=== PATIENT | female | born 1980 | race Caucasian/White ===

== ENCOUNTER 2019-03-25 11:35 | Emergency (ER) | payer BC ==
[2019-03-25] MEDS ORDERED: NORMAL SALINE 1000 ML 1,000 ML IV ONE (12:03)
--- NOTE | 2019-03-25 12:04 | ER Document Report ---
ED Medical Screen (RME) - General Chief Complaint: Flank Pain Stated Complaint: FLANK PAIN Time Seen by Provider: 03/25/19 11:58 Primary Care Provider: WALLACE SIERRA PA [Primary Care Provider] - Follow up as needed Mode of Arrival: Ambulatory Information source: Patient Notes: Patient is a 38-year-old female with recent gastric bypass and cholecystectomy presenting to the emergency department with complaints of dark urine and right flank pain. Patient reports she has had elevated liver enzymes lately. She is concerned that she has dehydrated as she has not been able to drink much fluid due to the recent gastric sleeve. Exam: Tenderness to palpation to the right flank and right upper quadrant. I have greeted and performed a rapid initial assessment of this patient. A comprehensive ED assessment and evaluation of the patient, analysis of test results and completion of the medical decision making process will be conducted by additional ED providers. I have specifically instructed the patient or family members with the patient to immediately return to any nursing staff should anything change in the patient's condition or with their chief complaint. This medical record was dictated with voice recognizing software. There may be grammatical, syntax errors that are unintended. TRAVEL OUTSIDE OF THE [place] IN LAST 30 DAYS: No - Related Data Allergies/Adverse Reactions: meperidine HCl [From Demerol] Allergy (Unknown, Verified 03/25/19 11:35) Past Medical History - Social History Frequency of alcohol use: None Drug Abuse: None Renal/ Medical History: Denies: Hx Peritoneal Dialysis GI Medical History: Reports: Hx Gastroesophageal Reflux Disease, Hx Hiatal Hernia Psychiatric Medical History: Reports: Hx Attention Deficit Hyperactivity Disorder, Hx Depression Past Surgical History: Reports: Hx Abdominal Surgery - gastric sleeve/hiatal hernia repair, Hx Section - X2, Hx Cholecystectomy, Hx Genitourinary Surgery - URETER STENT REMOVED - Immunizations Hx Diphtheria, Pertussis, Tetanus Vaccination: Yes Physical Exam - Vital signs Vitals: Temp Pulse Resp BP Pulse Ox 98.5 F 84 14 120/91 H 97 03/25/19 11:38 03/25/19 11:38 03/25/19 11:38 03/25/19 11:38 03/25/19 11:38 Course - Vital Signs Vital signs: Temp Pulse Resp BP Pulse Ox 98.5 F 84 14 120/91 H 97 03/25/19 11:38 03/25/19 11:38 03/25/19 11:38 03/25/19 11:38 03/25/19 11:38 Doctor's Discharge - Discharge Referrals: WALLACE SIERRA PA [Primary Care Provider] - Follow up as needed
[2019-03-25 12:34] LABS: ABSOLUTE EOSINOPHILS # (AUTO) 0.1 10^3/uL (0.0-0.6); ABSOLUTE LYMPHOCYTES (AUTO) 1.3 10^3/uL (0.5-4.7); ABSOLUTE MONOCYTES (AUTO) 0.4 10^3/uL (0.1-1.4); ABSOLUTE NEUT (AUTO) 2.9 10^3/uL (1.7-8.2); BASOPHILS % (AUTO) 0.7 % (0-2); EOSINOPHILS % (AUTO) 1.3 % (0-6); HEMATOCRIT 44.8 % (36.0-47.0); HEMOGLOBIN 15.5 g/dL (12.0-15.5); LYMPHOCYTES % (AUTO) 28.2 % (13-45); MEAN CORPUSCULAR HEMOGLOBIN 29.4 pg (27.0-33.4); MEAN CORPUSCULAR HGB CONC 34.6 g/dL (32.0-36.0); MEAN CORPUSCULAR VOLUME 85 fl (80-97); MONOCYTES % (AUTO) 7.7 % (3-13); PLATELET COUNT 209 10^3/uL (150-450); RED BLOOD COUNT 5.26 10^6/uL (3.72-5.28); RED CELL DISTRIBUTION WIDTH 14.3 % (11.5-14.0); SEGMENTED NEUTROPHILS % (AUTO) 62.1 % (42-78); TOTAL CELLS COUNTED % (AUTO) 100 %; WHITE BLOOD COUNT 4.6 10^3/uL (4.0-10.5)
[2019-03-25 12:48] LABS: ALKALINE PHOSPHATASE 53 U/L (38-126); ANION GAP 9 (5-19); ASPARTATE AMINO TRANSFERASE 24 U/L (14-36); BILIRUBIN,DIRECT 0.3 mg/dL (0.0-0.4); BILIRUBIN,TOTAL 0.9 mg/dL (0.2-1.3); BLOOD UREA NITROGEN 11 mg/dL (7-20); CALCIUM 9.4 mg/dL (8.4-10.2); CARBON DIOXIDE 24 mmol/L (22-30); CHLORIDE 108 mmol/L (98-107); GLUCOSE 90 mg/dL (75-110); TOTAL PROTEIN 6.7 g/dL (6.3-8.2)
[2019-03-25 13:38] LABS: APPEARANCE,URINE SLIGHTLY-CLOUDY; BILIRUBIN,URINE SMALL (NEGATIVE); COLOR,URINE AMBER; GLUCOSE, URINE NEGATIVE (NEGATIVE); KETONES,URINE 20 mg/dL (NEGATIVE); LEUKOCYTE ESTERASE,URINE NEGATIVE (NEGATIVE); NITRITE,URINE NEGATIVE (NEGATIVE); PROTEIN,URINE 30 mg/dL (NEGATIVE); URINE SPECIFIC GRAVITY 1.027
--- NOTE | 2019-03-25 14:31 | ER Document Report ---
HPI - HPI Patient complains to provider of: right flank pain, dark urine Time Seen by Provider: 03/25/19 11:58 Severity: Mild Pain Level: 2 Context: 38-year-old female with the listed pmh, to include a recent gastric bypass (02/01/19 done in [place]) and remote cholecystectomy presenting to the emergency department with complaints of dark urine and right flank pain x a few days. Patient reports she has had elevated liver enzymes since her surgery and her pcp has been watching them and they have been normalizing, pcp felt as if it was normal after her surgeries. She is concerned that she has dehydrated as she has not been able to drink much fluid due to the recent gastric sleeve. No abdominal surgeries other than the recent gastric bypass and remote cholecystectomy. No history of ovarian cysts, fibroids, or endometriosis. hx of renal stones, thinks it felt different. Normal bowel movements. No other UTI symptoms. No URI symptoms. No recent antibiotics or steroids. No history of diabetes or asthma. No vaginal discharge/complaints/lesions or concerns for STDs and does not want a pelvic exam. No ripping or tearing sensation. Hasn't taken anything for her symptoms. No excessive NSAID use, Tylenol use, or EtOH. No prior history of pancreatitis, ulcers, GI bleed, IBS, Crohn's, or UC. no change in color or caliber or stool. no blood thinners. no fall or trauma. hasn't sought care until now. pain not worse with deep breathing. pain worse with movement and better with rest. unsure if she just pulled something. otc meds controlling pain. she didn't want anything here for pain. no other associated sx. - ROS Systems Reviewed and Negative: Yes All other systems reviewed and negative - to include 10 systems, unless mentioned in the hpi - REPRODUCTIVE Reproductive: DENIES: : - DERM Skin Color: Normal, [place] Past Medical History - General Information source: Patient - Social History Smoking Status: Former Smoker Frequency of alcohol use: None Drug Abuse: None Family History: Hypertension, Malignancy - Lung cancer in a smoking relative., Other - Polycystic kidney disease in her grandmother but not in her mother. Patient has suicidal ideation: No Patient has homicidal ideation: No Endocrine Medical History: Reports: None Renal/ Medical History: Denies: Hx Peritoneal Dialysis GI Medical History: Reports: Hx Gastroesophageal Reflux Disease, Hx Hiatal Hernia, Other - liver hemangioma Psychiatric Medical History: Reports: Hx Attention Deficit Hyperactivity Disorder, Hx Depression Past Surgical History: Reports: Hx Abdominal Surgery - gastric sleeve/hiatal hernia repair, Hx Section - X2, Hx Cholecystectomy, Hx Genitourinary Surgery - URETER STENT REMOVED - Immunizations Immunizations up to date: Yes Hx Diphtheria, Pertussis, Tetanus Vaccination: Yes Vertical Provider Document - CONSTITUTIONAL Notes: >>>> PHYSICAL_EXAM: GENERAL_APPEARANCE: well_nourished, alert, cooperative, no_acute_distress, no_obvious_discomfort. Pleasant, young female, smiling, speaking in full sentences, in no sign of pain or resp distress, easily sitting up VITALS: reviewed, see vital signs table. HEAD: normocephalic, atraumatic. no dolan signs. no raccoon eyes. EYES: PERRL, EOMI, (-)scleral icterus. NOSE: no_nasal_discharge. MOUTH: (-)decreased moisture. THROAT: no_tonsilar_inflammation/hypertrophy/exudate NECK: supple, no_neck_tenderness, full rom. full strength. no meningeal signs. BACK: no midline_back_tenderness. no step offs or deformities. mild ttp over the right upper paralumbar musculature that reproduces pts pain exactly. spasm noted. no overlying skin changes. CHEST_WALL: no_chest_tenderness. LUNGS: no_wheezing, (-)accessory muscle use, good air exchange bilateral. HEART: normal_rate, normal_rhythm, ABDOMEN: normal_BS, soft, abdomen-diffuse, non-tender, (-)guarding, (- )rebound, no distension or peritoneal signs. neg murphys. neg mcburneys. no cva tenderness. neg heel sitrke. neg obturator. neg psoas. neg rovsign. well healed scars from pts prior abd surgeries. no hernias or signs of wound infection, complication, or dehiscence. incisions c/d/i. PELVIC: deferred by pt RECTAL: deferred; however, no sign of loss of bowel or bladder. no soiling of clothing. EXTREMITIES: strength 5/5 in all_extremities, good pulses in all_extremities, no_edema, no_swelling\tenderness. full rom. normal gait. good hand stock roller. brisk cap refill. SKIN: warm, dry, good_color, no_rash. no grossly visible overlying skin ch anges to suggest trauma NEURO: motor_intact, sensory_intact. cranial nerves 2-12 intact, cerebellar fxn intact MENTAL_STATUS: normal_affect, speech_clear, oriented_X_3, responds_appropriately to questions. - INFECTION CONTROL TRAVEL OUTSIDE OF THE [place] IN LAST 30 DAYS: No Course - Re-evaluation Re-evalutation: pt here for right flank pain x a few days and dark urine. labs unremarkable other than a ua that appears contaminated. advised will call with any abnormal results that require change in plan of care. will hold of on abx and await ucx results for initiation of abx. no other uti sx. hx of renal stones; however, pt refused imaging and just wanted fluids and dc. states she will return or f/u with pcp for imaging should her sx persist or worsen. no fevers, vomiting, or other changes in bowel or bladder. pain reproducible over her right upper paralumbar musculature and could be musculoskeletal. no crepitation, rash, or other overlying skin changes. no uri sx. advised sx care. ice/heat to the area. otc meds for pain. push fluids. advised to f/u with pcp in 1-2 days. return for any worsening symptoms. vss. well appearing. satting well on ra. neurononfocal. pt understands and agrees to plan. On reexam, pt improved with tx listed. remained stable. nontoxic. well appea ring. pain controlled. tolerating po. requesting to go home. serial abd exams remain benign. neurononfocal. Documentation achieved through voice recording which my lead to some occasional accidental typographical errors. Extensive efforts have been made to proof read documentation to make sure these are the least as possible. Category Date Time Status Saline Lock (ED) NOW Care 03/25/19 12:03 Active CBC WITH DIFF [HEME] Stat Lab 03/25/19 12:08 Completed COMPREHENSIVE METABOLIC PANEL [CHEM] Stat Lab 03/25/19 12:08 Completed HCG QUALITATIVE, URINE [URIN] Stat Lab 03/25/19 13:16 Completed LIPASE [CHEM] Stat Lab 03/25/19 12:08 Completed URINALYSIS [URIN] Stat Lab 03/25/19 13:16 Completed URINE CULTURE [MC] Stat Lab 03/25/19 13:16 Completed Normal Saline 1000 ml [NaCl 0.9% 1000 ml IV Soln] 1,000 Med 03/25/19 12:03 Discontinued ml IV BOLUS - Vital Signs Vital signs: Temp Pulse Resp BP Pulse Ox 98.5 F 84 14 120/91 H 97 03/25/19 11:38 03/25/19 11:38 03/25/19 11:38 03/25/19 11:38 03/25/19 11:38 Temp Pulse Resp BP Pulse Ox 03/25/19 16:11 97.8 F 80 16 116/86 H 100 03/25/19 11:38 98.5 F 84 14 120/91 H 97 - Laboratory Result Diagrams: 03/25/19 12:08 03/25/19 12:08 Laboratory results interpreted by me: 03/25/19 03/25/19 03/25/19 12:08 12:08 13:16 RDW 14.3 H Chloride 108 H Urine Protein 30 H Urine Ketones 20 H Urine Bilirubin SMALL H Urine Urobilinogen 4.0 H Labs- Entire Visit 03/25/19 03/25/19 03/25/19 12:08 12:08 13:16 WBC 4.6 RBC 5.26 Hgb 15.5 Hct 44.8 MCV 85 MCH 29.4 MCHC 34.6 RDW 14.3 H Plt Count 209 Seg Neutrophils % 62.1 Lymphocytes % 28.2 Monocytes % 7.7 Eosinophils % 1.3 Basophils % 0.7 Absolute Neutrophils 2.9 Absolute Lymphocytes 1.3 Absolute Monocytes 0.4 Absolute Eosinophils 0.1 Absolute Basophils 0.0 Sodium 141.1 Potassium 4.0 Chloride 108 H Carbon Dioxide 24 Anion Gap 9 BUN 11 Creatinine 0.70 Est GFR ( Amer) > 60 Est GFR (Non-Af Amer) > 60 Glucose 90 Calcium 9.4 Total Bilirubin 0.9 Direct Bilirubin 0.3 Neonat Total Bilirubin Not Reportable Neonat Direct Bilirubin Not Reportable Neonat Indirect Bili Not Reportable AST 24 ALT 19 Alkaline Phosphatase 53 Total Protein 6.7 Albumin 4.0 Lipase 215.0 Urine Color [place] Urine Appearance SLIGHTLY-CLOUDY Urine pH 5.0 Ur Specific [place] 1.027 Urine Protein 30 H Urine Glucose (UA) NEGATIVE Urine Ketones 20 H Urine Blood NEGATIVE Urine Nitrite NEGATIVE Urine Bilirubin SMALL H Urine Urobilinogen 4.0 H Ur Leukocyte Esterase NEGATIVE Urine WBC (Auto) 1 Urine RBC (Auto) 2 Squamous Epi Cells Auto 7 Urine Mucus (Auto) MANY Urine Ascorbic Acid NEGATIVE Urine HCG, Qual NEGATIVE Discharge - Discharge Clinical Impression: Flank pain Condition: Good Disposition: HOME, SELF-CARE Instructions: Flank Pain ([facility]) Additional Instructions: Follow-up with PCP in 1 to 2 days. Return for any worsening symptoms. drink plenty of fluids. bland diet. ice/heat to the area Referrals: WALLACE SIERRA PA [NO LOCAL MD] - Follow up in 3-5 days
[2019-03-25 16:13] VITALS: BP 116/86
== END 2019-03-25 16:14 | disposition home or self-care (01) ==
LOC: ER 11:35
DX: R10.9 Unspecified abdominal pain (principal); M79.18 Myalgia, other site; R25.2 Cramp and spasm; R39.89 Other symptoms and signs involving the genitourinary system; Z98.84 Bariatric surgery status; Z90.49 Acquired absence of other specified parts of digestive tract; Z87.442 Personal history of urinary calculi; Z87.891 Personal history of nicotine dependence; Z87.19 Personal history of other diseases of the digestive system
CPT/HCPCS: 99284; 96360; 36415; 87086; 83690; 85025; 81025; 87088; 80053; 81001; 87186; J7030

== ENCOUNTER 2020-07-12 17:05 | Emergency (ER) | payer BC ==
--- NOTE | 2020-07-12 17:30 | ER Document Report ---
ED Medical Screen (RME) - General Chief Complaint: Palpitations Stated Complaint: PALPITATIONS Time Seen by Provider: 07/12/20 17:26 Primary Care Provider: CANDELARIA ROBLEDO MD [Primary Care Provider] - Follow up as needed Mode of Arrival: Ambulatory Information source: Patient Notes: 39-year-old female presented to ED for chest palpitations. She states she was just tested positive for Covid about 1314 days ago and her palpitations returned when she tested positive. She states she has had palpitations in the past but that is been a while. She states she is not having shortness of breath she does have a cough she has been sick but she came in today mostly for the palpitation and the chest tightness. We will get chest pain protocol as well as a repeat Covid test. Charge nurse has been informed of patient's history. I have greeted and performed a rapid initial assessment of this patient. A comprehensive ED assessment and evaluation of the patient, analysis of test results and completion of medical decision making process will be conducted by an additional ED providers. TRAVEL OUTSIDE OF THE [place] IN LAST 30 DAYS: No - Related Data Allergies/Adverse Reactions: meperidine HCl [From Demerol] Allergy (Unknown, Verified 03/25/19 11:35) Past Medical History Renal/ Medical History: Denies: Hx Peritoneal Dialysis GI Medical History: Reports: Hx Gastroesophageal Reflux Disease, Hx Hiatal Hernia Psychiatric Medical History: Reports: Hx Attention Deficit Hyperactivity Disorder, Hx Depression Past Surgical History: Reports: Hx Abdominal Surgery - gastric sleeve/hiatal hernia repair, Hx Section - X2, Hx Cholecystectomy, Hx Genitourinary Surgery - URETER STENT REMOVED - Immunizations Immunizations up to date: Yes Hx Diphtheria, Pertussis, Tetanus Vaccination: Yes Physical Exam - Vital signs Vitals: Temp Pulse Resp BP Pulse Ox 98.7 F 142 H 20 126/79 H 100 07/12/20 17:24 07/12/20 17:24 07/12/20 17:24 07/12/20 17:24 07/12/20 17:24 Course - Vital Signs Vital signs: Temp Pulse Resp BP Pulse Ox 98.7 F 142 H 20 126/79 H 100 07/12/20 17:24 07/12/20 17:24 07/12/20 17:24 07/12/20 17:24 07/12/20 17:24 Doctor's Discharge - Discharge Referrals: CANDELARIA ROBLEDO MD [Primary Care Provider] - Follow up as needed
--- NOTE | 2020-07-12 18:08 | RADIOLOGY REPORT (SQ) ---
EXAM DESCRIPTION: CHEST SINGLE VIEW IMAGES COMPLETED DATE/TIME: 07/12/2020 5:57 pm REASON FOR STUDY: Palpitation recent Covid positive COMPARISON: None. EXAM PARAMETERS: NUMBER OF VIEWS: One view. TECHNIQUE: Single frontal radiographic view of the chest acquired. RADIATION DOSE: NA LIMITATIONS: None. FINDINGS: LUNGS AND PLEURA: No opacities, masses or pneumothorax. No pleural effusion. MEDIASTINUM AND HILAR STRUCTURES: No masses. Contour normal. HEART AND VASCULAR STRUCTURES: Heart normal in size. Normal vasculature. BONES: No acute findings. HARDWARE: None in the chest. OTHER: No other significant finding. IMPRESSION: NO ACUTE RADIOGRAPHIC FINDING IN THE CHEST. TECHNICAL DOCUMENTATION: JOB ID: [id number] 2010 [employer]- All Rights Reserved Reading location - IP/workstation name: [email or web address]
[2020-07-12 18:40] LABS: ABSOLUTE LYMPHOCYTES (AUTO) 0.7 10^3/uL (0.5-4.7); ABSOLUTE MONOCYTES (AUTO) 0.2 10^3/uL (0.1-1.4); ABSOLUTE NEUT (AUTO) 8.4 10^3/uL (1.7-8.2); BASOPHILS % (AUTO) 0.5 % (0-2); EOSINOPHILS % (AUTO) 0.1 % (0-6); HEMATOCRIT 37.3 % (36.0-47.0); HEMOGLOBIN 13.3 g/dL (12.0-15.5); LYMPHOCYTES % (AUTO) 7.3 % (13-45); MEAN CORPUSCULAR HEMOGLOBIN 29.8 pg (27.0-33.4); MEAN CORPUSCULAR HGB CONC 35.7 g/dL (32.0-36.0); MEAN CORPUSCULAR VOLUME 83 fl (80-97); MONOCYTES % (AUTO) 1.9 % (3-13); PLATELET COUNT 210 10^3/uL (150-450); RED BLOOD COUNT 4.48 10^6/uL (3.72-5.28); RED CELL DISTRIBUTION WIDTH 12.8 % (11.5-14.0); SEGMENTED NEUTROPHILS % (AUTO) 90.2 % (42-78); TOTAL CELLS COUNTED % (AUTO) 100 %; WHITE BLOOD COUNT 9.3 10^3/uL (4.0-10.5)
[2020-07-12 19:01] LABS: ALBUMIN 3.9 g/dL (3.5-5.0); ALKALINE PHOSPHATASE 56 U/L (38-126); ANION GAP 7 (5-19); ASPARTATE AMINO TRANSFERASE 17 U/L (14-36); BILIRUBIN,TOTAL 0.6 mg/dL (0.2-1.3); BLOOD UREA NITROGEN 10 mg/dL (7-20); CALCIUM 8.9 mg/dL (8.4-10.2); CARBON DIOXIDE 22 mmol/L (22-30); CHLORIDE 106 mmol/L (98-107); GLUCOSE 115 mg/dL (75-110); POTASSIUM 3.6 mmol/L (3.6-5.0); TOTAL PROTEIN 6.6 g/dL (6.3-8.2)
--- NOTE | 2020-07-12 19:22 | ER Document Report ---
ED General - General Chief Complaint: Palpitations Stated Complaint: PALPITATIONS Time Seen by Provider: 07/12/20 17:26 Primary Care Provider: ULCIES REDDY MD [ACTIVE STAFF] - Follow up as needed CANDELARIA ROBLEDO MD [Primary Care Provider] - Follow up in 3-5 days Mode of Arrival: Ambulatory TRAVEL OUTSIDE OF THE [place] IN LAST 30 DAYS: No - HPI Notes: Patient is a 39-year-old female who presents with palpitations. Patient states she was diagnosed with Covid several weeks ago. She self quarantined and was feeling better. She states she no longer has a cough. Patient mentions that since she was diagnosed with Covid, she has had palpitations. They last throughout the day. She has had this before years ago but never had it diagnosed. She is also been very anxious as she has tests at school and the Covid diagnosis has also been giving her anxiety. She denies any chest pain. She had shortness of breath with Covid but that has resolved. No fevers. Patient also mentions that she was diagnosed with trichomonas and bacterial vaginosis [facility]. She had a pelvic exam done there. She is on day 3 of Flagyl. They have not called her and told her the results of the gonorrhea or chlamydia. She states she feels some pressure in the pelvic area and has some dysuria. She would like to be tested again for gonorrhea and chlamydia through a urine test. She also would like to have a urinalysis to make sure she does not have a UTI as well. She denies any history of PE or DVT. She is not on any hormonal control. She states she had her tubes tied. - Related Data Allergies/Adverse Reactions: meperidine HCl [From Demerol] Allergy (Unknown, Verified 03/25/19 11:35) Past Medical History - General Information source: Patient - Social History Smoking Status: Unknown if Ever Smoked Family History: Hypertension, Malignancy - Lung cancer in a smoking relative., Other - Polycystic kidney disease in her grandmother but not in her mother. Patient has homicidal ideation: No Renal/ Medical History: Denies: Hx Peritoneal Dialysis GI Medical History: Reports: Hx Gastroesophageal Reflux Disease, Hx Hiatal Hernia Psychiatric Medical History: Reports: Hx Attention Deficit Hyperactivity Disorder, Hx Depression Past Surgical History: Reports: Hx Abdominal Surgery - gastric sleeve/hiatal hernia repair, Hx Section - X2, Hx Cholecystectomy, Hx Genitourinary Surgery - URETER STENT REMOVED - Immunizations Immunizations up to date: Yes Hx Diphtheria, Pertussis, Tetanus Vaccination: Yes Review of Systems - Review of Systems Notes: CONSTITUTIONAL: No fever, fatigue or weight loss. SKIN: No rash. HENT: No congestion, ear pain, or sore throat. CARDIOVASCULAR: No chest pain or edema. Positive for palpitations. RESPIRATORY: No cough, shortness of breath, congestion, or wheezing. GASTROINTESTINAL: No abdominal pain, nausea, vomiting, bloody stools or diarr hea. GENITOURINARY: Positive for dysuria. MUSCULOSKELETAL: No joint pain or swelling. NEUROLOGIC: No seizures. No headache, focal weakness or sensory changes. HEMATOLOGIC: No unusual bruising or bleeding. PSYCHIATRIC: No depression. Positive for anxiety. Physical Exam - Vital signs Vitals: Temp Pulse Resp BP Pulse Ox 98.7 F 142 H 20 126/79 H 100 07/12/20 17:24 07/12/20 17:24 07/12/20 17:24 07/12/20 17:24 07/12/20 17:24 - General General appearance: Appears well Notes: VITAL SIGNS: Within normal limits. GENERAL: No acute distress, non-toxic appearance. HEAD: Normal with no signs of head trauma. EYES: Conjunctiva normal, no discharge. EARS: Hearing grossly intact. NECK: Normal range of motion, no tenderness, supple, no lymphadenopathy, No adenopathy, no JVD. CHEST: Clear breath sounds bilaterally. No wheezes, rales, or rhonchi. CARDIAC: Regular rate and rhythm. S1 and S2, without murmurs, gallops, or rubs. VASCULAR: No Edema. ABDOMEN: Normal and soft with no tenderness GENITOURINARY: Normal, No tenderness MUSCULOSKELETAL: Good range of motion of all major joints. Extremities without clubbing, cyanosis or edema. NEUROLOGICAL: Alert and oriented x 3. No focal sensory or strength deficits. Speech normal. Follows commands appropriately. PSYCHIATRIC: Normal Affect, judgement and mood. SKIN: Normal appearance with no rashes or lesions. Course - Re-evaluation Re-evalutation: 07/12/20 19:48 Patient's EKG is unremarkable. Her orthostatics are negative. She was given fluids. I discussed all results with the patient. Her CTA does not show a PE. I did discuss incidental finding of the adrenal adenoma and hepatic lesions. I informed her that the adrenal adenoma could be benign but could also be causing palpitations. She was told to follow-up with her PCP for this. Patient is very agreeable to the plan. Her heart rate and blood pressure are normal on reassessment. 07/13/20 02:25 - Vital Signs Vital signs: Temp Pulse Resp BP Pulse Ox 98 F 85 16 110/74 98 07/13/20 00:20 07/13/20 00:20 07/13/20 00:20 07/13/20 00:20 07/13/20 00:20 - Laboratory Result Diagrams: 07/12/20 18:13 07/12/20 18:13 Laboratory results interpreted by me: 07/12/20 07/12/20 07/12/20 18:13 18:13 18:13 Lymph % (Auto) 7.3 L [place] % (Auto) 1.9 L Absolute Neuts (auto) 8.4 H Seg Neutrophils % 90.2 H D-Dimer 0.51 H Sodium 134.6 L Glucose 115 H - EKG Interpretation by Me EKG shows normal: Sinus rhythm Rate: Normal Rhythm: NSR When compared to previous EKG there are: Previous EKG unavailable Additional EKG results interpreted by me: 07/12/20 19:22 NS rhythm at a rate of 98. QTc 419. No acute ST changes. No previous EKG available for comparison. Discharge - Discharge Clinical Impression: Palpitations Condition: Stable Disposition: HOME, SELF-CARE Instructions: Palpitations (Irregular or Rapid Heartrate) ([facility]) Additional Instructions: Your work-up today is reassuring. Your CT scan does show an incidental finding of an adrenal adenoma and hepatic lesion. Please follow-up with your family doctor about this. Please make sure you are staying hydrated. Please return to the ER for any return of symptoms. Your family doctor may have you wear a Holter monitor and do other work-up. Referrals: CANDELARIA ROBLEDO MD [Primary Care Provider] - Follow up in 3-5 days ULICES REDDY MD [ACTIVE STAFF] - Follow up as needed
[2020-07-12] MEDS ORDERED: NORMAL SALINE 1000 ML 1,000 ML IV ONE (19:54)
[2020-07-12 21:19] LABS: APPEARANCE,URINE CLEAR; BILIRUBIN,URINE NEGATIVE (NEGATIVE); COLOR,URINE STRAW; GLUCOSE, URINE NEGATIVE (NEGATIVE); KETONES,URINE NEGATIVE (NEGATIVE); PROTEIN,URINE NEGATIVE (NEGATIVE); URINE SPECIFIC GRAVITY 1.004; UROBILINOGEN,URINE NEGATIVE mg/dL (<2.0)
--- NOTE | 2020-07-12 23:11 | RADIOLOGY REPORT (SQ) ---
EXAM DESCRIPTION: CT CHEST ANGIOGRAPHY WITHOUT THEN WITH IV CONTRAST COMPLETED DATE/TME: 07/12/2020 22:32 CLINICAL HISTORY: 39 years Female, palpitations, elevated dimer Comparison: CR, same day. Ultrasound, 06/09/2016. Technique: IV contrast. Coronal and sagittal reformat. 3d reconstruction. This exam was performed according to our departmental dose-optimization program, which includes automated exposure control, adjustment of the mA and/or kV according to patient size and/or use of iterative reconstruction technique.[facility]: Dose Right [facility]: CareDose [facility]: Dose Right [facility]: Teradose 4D [facility]: [place] LIMITATIONS: Quality of pulmonary arteriogram: Suboptimal. Findings: 5.6 cm low-attenuation lesion of the right hepatic lobe not definitively characterized and consistent with prior ultrasound from June 2016 suggesting indolence. Recommend nonurgent multiphase contrast CT or MRI of the liver. Gastric suture. Cholecystectomy. 0.3 cm right lower lobar perifissural micronodule probably benign; no routine follow-up recommended. 2.2 cm, 17-HU left adrenal adenoma. Splenic index of 600. No pulmonary embolus. No right ventricular strain. Clear lungs. Inferior neck, axillae, mediastinum, airway, lymphatics, heart, vasculature, upper abdomen, and musculoskeleton appear otherwise unremarkable. Impression: 1. 5.6 cm low-attenuation lesion of the right hepatic lobe not definitively characterized and consistent with prior ultrasound from June 2016 suggesting indolence. If not previously characterized, recommend nonurgent multiphase contrast CT or MRI of the liver. 2. Moderate splenomegaly. 3. No acute cardiopulmonary findings. No pulmonary embolus.
[2020-07-12 23:17] LABS: CHLAM PCR NOT DETECTED (NOT DETECT)
[2020-07-13 00:20] VITALS: BP 110/74
--- NOTE | 2020-07-13 18:50 | EKG REPORT ---
SEVERITY:- BORDERLINE ECG - SINUS RHYTHM BORDERLINE T WAVE ABNORMALITIES : Confirmed by: Max Keith MD 13-Jul-2020 18:49:43
== END 2020-07-13 00:20 | disposition home or self-care (01) ==
LOC: ER 17:05
DX: R00.2 Palpitations (principal); F41.9 Anxiety disorder, unspecified; N76.0 Acute vaginitis; B96.89 Other specified bacterial agents as the cause of diseases classified elsewhere; A59.9 Trichomoniasis, unspecified; R30.0 Dysuria; D35.02 Benign neoplasm of left adrenal gland; K76.9 Liver disease, unspecified; R16.1 Splenomegaly, not elsewhere classified; Z88.6 Allergy status to analgesic agent; Z88.5 Allergy status to narcotic agent
CPT/HCPCS: 93005; 99285; 96360; 36415; 83735; 84443; 85025; 81025; 80053; 81001; 84484; 85379; 87491; 87591; 71045; 71275; 93010; J7030